=== PATIENT | female | born 1955 | race Caucasian/White ===

== ENCOUNTER 2016-11-03 00:49 | Emergency (ER) | payer BC | END 2016-11-03 03:01 | disposition home or self-care (01) | LOC: ER1 00:49 | DX: G43.911 Migraine, unspecified, intractable, with status migrainosus (principal) | CPT/HCPCS: 96374; 96375; 99283; J1885; J2270; J2765; J7030 ==

== ENCOUNTER → 2020-04-28 | Outpatient (CLI) | payer OTHER, MEDICARE | LOC: EXRD 08:05 | DX: R11.2 Nausea with vomiting, unspecified (principal); R16.0 Hepatomegaly, not elsewhere classified | CPT/HCPCS: 76700 ==

== ENCOUNTER → 2020-10-29 | Outpatient (CLI) | payer OTHER | LOC: EMI 10-26 13:45 | DX: M51.16 Intervertebral disc disorders with radiculopathy, lumbar region (principal); M48.061 Spinal stenosis, lumbar region without neurogenic claudication | CPT/HCPCS: 72148 ==

== ENCOUNTER → 2021-01-26 | Outpatient (CLI) | payer MEDICARE, OTHER | LOC: KOH-I 12:58 | DX: M25.562 Pain in left knee (principal) | CPT/HCPCS: 73560 ==

== ENCOUNTER → 2021-05-10 | Outpatient (CLI) | payer MEDICARE, OTHER | LOC: EXRD 09:44 | DX: K76.0 Fatty (change of) liver, not elsewhere classified (principal) | CPT/HCPCS: 76700 ==

== ENCOUNTER → 2021-06-21 | Outpatient (CLI) | payer MEDICARE, OTHER | LOC: EXRD 14:50 | DX: R60.0 Localized edema (principal); M79.604 Pain in right leg; M79.605 Pain in left leg | CPT/HCPCS: 93925; 93970 ==

== ENCOUNTER 2021-08-04 18:51 | Emergency (ER) | payer MEDICARE, OTHER ==
[2021-08-04 20:27] LABS: HEMOGLOBIN 14.2 gm/dl (12.3-15.3); RED BLOOD COUNT 4.72 M/UL (4.00-5.10); WHITE BLOOD COUNT 8.8 K/UL (4.5-11.0)
[2021-08-04 20:41] LABS: BUN/CREATININE RATIO 22 (0-10)
[2021-08-05] MEDS ORDERED: ANTIVERT25 M1 PO (01:40)
[2021-08-05] MEDS ORDERED: KEFLEX CAP 250250 MG PO (01:40)
== END 2021-08-05 01:33 | disposition home or self-care (01) ==
LOC: ER1 18:51
PROVIDERS: Physician Assistant
DX: R42 Dizziness and giddiness (principal); R11.2 Nausea with vomiting, unspecified; Z87.442 Personal history of urinary calculi; G43.909 Migraine, unspecified, not intractable, without status migrainosus; Z51.81 Encounter for therapeutic drug level monitoring
CPT/HCPCS: 70450; 71045; 80053; 81001; 82550; 82553; 83880; 84484; 85025; 85610; 85730; 93005; 96374; 99284; J0690